=== PATIENT | female | born 1955 | race Asian ===

== ENCOUNTER 2017-10-22 07:30 | Inpatient (IN) | payer OTHER ==
[~2017-10-22] VITALS: Ht 160 cm; Wt 54.0 kg
[2017-11-22] VITALS (15 sets, daily range): BP systolic 118–147; BP diastolic 77–90
[2017-11-22] MEDS ORDERED: Pantoprazole Inj IVP ONE (06:00)
[2017-11-22] MEDS ORDERED: Vancomycin 1gm/D5W 275ml IVPB ONE ×2 (06:00)
[2017-11-22] MEDS ORDERED: Vancomycin 1gm inj IVPB ONE (06:29)
[2017-11-22] MEDS ORDERED: Pantoprazole Inj ONE (06:48)
[2017-11-22] MEDS ORDERED: LR 1000ml 1,000 ML IVLG SCH (06:57)
[2017-11-22] MEDS ORDERED: Atropine Inj 1mg/10ml Syr IV PRN (07:00)
[2017-11-22] MEDS ORDERED: LORazepam Inj 2mg/ml 1ml IV PRN (07:00)
[2017-11-22] MEDS ORDERED: Midazolam 2mg/2ml Inj IVP PRN (07:00)
[2017-11-22] MEDS ORDERED: Ketorolac 30mg Inj IV PRN ×2 (07:00)
[2017-11-22] MEDS ORDERED: DiphenhydrAMINE 50mg/ml Inj IVP PRN (07:00)
[2017-11-22] MEDS ORDERED: oxyCODONE HCL/Acetaminophen 5/325mg ORAL PRN (07:00)
[2017-11-22] MEDS ORDERED: Labetalol 5mg/ml 20ml vial IV PRN (07:00)
[2017-11-22] MEDS ORDERED: Propofol 1,000mg/ 100ml btl IV ONE (07:00)
[2017-11-22] MEDS ORDERED: Norco 5mg/325mg tab ORAL PRN (07:00)
[2017-11-22] MEDS ORDERED: Acetaminophen (Non formulary) 100 ML IV ONE ×3 (07:00→21:00)
[2017-11-22] MEDS ORDERED: fentaNYL 100 mcg/2 mL IV PRN (07:00)
[2017-11-22] MEDS ORDERED: EPINEPHrine 1mg/1ml Amp ONE (07:00)
[2017-11-22] MEDS ORDERED: Thrombin 5000 units TOPIC ONE ×3 (07:00→12:36)
[2017-11-22] MEDS ORDERED: HYDROcodone/Acetamin 7.5/325 tab ORAL PRN ×2 (07:00→18:45)
[2017-11-22] MEDS ORDERED: Hydromorphone 0.5mg/0.5ml inj IVP PRN (07:00)
[2017-11-22] MEDS ORDERED: Metoclopramide 10mg/2ml Inj IVP PRN (07:00)
[2017-11-22] MEDS ORDERED: Bacitracin 50000 Units Vial ONE ×3 (07:01→16:11)
[2017-11-22] MEDS ORDERED: Gelfoam Absorbable 1gm powder pkt TOPIC ONE (07:02)
[2017-11-22] MEDS ORDERED: Sodium Chloride 10ml vial INJ ONE (07:02)
[2017-11-22] MEDS ORDERED: Lidocaine 1% MPF 10mg/ml 5ml ONE (07:02)
[2017-11-22] MEDS ORDERED: Dexamethasone 4mg/ml vial ONE ×3 (07:02→12:20)
[2017-11-22] MEDS ORDERED: Thrombin 5000 units spray kit TOPIC ONE (07:02)
[2017-11-22] MEDS ORDERED: VITAMIN C1000 M2 PO (07:03)
[2017-11-22] MEDS ORDERED: HAIR SKIN NAIL1 EACH PO (07:03)
[2017-11-22] MEDS ORDERED: VITAMIN D32000 UNI3 PO (07:03)
[2017-11-22] MEDS ORDERED: FORTEO2.4 ML SUBQ (07:03)
[2017-11-22] MEDS ORDERED: LUTEIN 15 MG S1 EACH PO (07:03)
[2017-11-22] MEDS ORDERED: CALCIUM500 M2 PO (07:03)
[2017-11-22] MEDS ORDERED: Heparin 1000 units/ml 1ml Vial ONE (07:09)
--- NOTE | 2017-11-22 07:45 | Anethesia Preoperative Eval ---
Anesthesia Pre-op PMH/ROS General Date of Evaluation: Nov 22, 2017 Time of Evaluation: 08:01 Anesthesiologist: Micheal ASA Score: ASA 2 Mallampati Score Class I : Soft palate, uvula, fauces, pillars visible Class II: Soft palate, uvula, fauces visible Class III: Soft palate, base of uvula visible Class IV: Only hard plate visible Mallampati Classification: Class II Surgeon: Gabino Diagnosis: Neck Pain Surgical Procedure: ACDF C4-5, C5-6 Anesthesia History: none Family History: no anesthesia problems Allergies: Coded Allergies: No Known Allergies (Unverified , 11/21/17) Medications: see eMAR Past Medical History Neurologic/Psychiatric: Reports: depression/anxiety PSxH Narrative: Appendectomy Anesthesia Pre-op Phys. Exam Physician Exam Last Vital Signs Date Time Temp Pulse Resp B/P (MAP) Pulse Ox O2 Delivery O2 Flow Rate FiO2 11/22/17 06:56 97.7 56 18 118/81 100 Room Air 97.7 Constitutional: NAD Neurologic: CN 2-12 intact Cardiovascular: RRR Respiratory: CTA Gastrointestinal: S/NT/ND Airway Exam Mallampati Score: Class II MO: full ROM: limited Teeth: intact Anesthesia Pre-op A/P Risk Assessment & Plan Assessment: ASA 2 Plan: GA, BIS, GlideScope Status Change Before Surgery: No Pre-Antibiotics Dru Gram Vancomycin IV Given Within 1 Hr of Incision: Yes Time Given: 08:06 Tuan Burton MD Nov 22, 2017 07:45
--- NOTE | 2017-11-22 07:52 | Brief Operative Note ---
Immediate Post Operative Note Operative Note Chief Complaint: Intractable neck pain, arm aeakness and poor balamnce MIKI SALOOMN Nov 22, 2017 07:52
--- NOTE | 2017-11-22 07:55 | Pre-Procedure Note/Attestation ---
Pre-Procedure Note/Attestation Complete Prior to Procedure Planned Procedure: bilateral Procedure Narrative: Two stage procedure: 1. Anterior cervical discectomy with partial corpectomies C4-5 and C5-6, interbody cage, allograft, autograft and iliac crest bone marrow aspirate and fixation. 2. Posterior cervical decompression and lateral mass fixation with screws and rods and posterolateral fusion with allograft, autograft and iliac crest bone marrow aspirate. Attestation I attest that I discussed the nature of the procedure; its benefits; risks and complications; and alternatives (and the risks and benefits of such alternatives ), prior to the procedure, with the patient (or the patient's legal c s s representative). I attest that, if there was a reasonable possibility of needing a blood transfusion, the patient (or the patient's legal c s s representative) was given the [place] [facility] [employer] [facility] standardized written summary, pursuant to the [place] Blood Safety Act ([place] Health and Safety Code # 1645, as amended). I attest that I re-evaluated the patient just prior to the surgery and that there has been no change in the patient's H&P, except as documented below: MIKI SALOMON Nov 22, 2017 07:55
[2017-11-22] MEDS ORDERED: NS Irrig 1000ml ONE (08:00)
[2017-11-22] MEDS ORDERED: Sterile Water Irrig 1000ml IRRIG ONE (08:00)
[2017-11-22] MEDS ORDERED: Zemuron 50mg/5ml Inj IV ONE (08:00)
[2017-11-22] MEDS ORDERED: LR 1000ml ONE (08:00)
[2017-11-22] MEDS ORDERED: Lidocaine 1% Plain 30 ml INJ ONE ×3 (08:12→14:05)
--- NOTE | 2017-11-22 09:17 | Immediate Post-Op Evaluation ---
Immediate Post-Op Evalulation Immediate Post-Op Evalulation Procedure: ACDF C4-5, C5-6, PSF C4-7 Date of Evaluation: Nov 22, 2017 Time of Evaluation: 17:50 IV Fluids: 1200 LR Blood Products: 500 ALB Estimated Blood Loss: 200 Urinary Output: 700 Blood Pressure Systolic: 134 Blood Pressure Diastolic: 76 Pulse Rate: 66 Respiratory Rate: 16 O2 Sat by Pulse Oximetry: 100 Temperature (Fahrenheit): 97.6 Pain Score (1-10): 3 Nausea: No Vomiting: No Complications 0 Patient Status: awake, reacts, patent, extubated, none Hydration Status: adequate Dru Gram Vancomycin IV Given Within 1 Hr of Incision: Yes Time Given: 08:06 Tuan Burton MD Nov 22, 2017 09:17
[2017-11-22] MEDS: Thrombin 5000 units spray kit TOPIC ONE ×2 (09:20→13:45)
[2017-11-22] MEDS: Bupivacaine 0.5% Inj 30 ml vial INJ ONE ×2 (09:20→13:45)
[2017-11-22] MEDS ORDERED: fentaNYL 100 mcg/2 mL IV ONE ×2 (10:19→16:30)
[2017-11-22] MEDS: Bacitracin 50000 Units Vial ONE ×2 (11:25→14:50)
[2017-11-22] MEDS ORDERED: Bacitracin Oint 15gm Tube TOPIC ONE (12:36)
[2017-11-22] MEDS ORDERED: Flumazenil 0.1mg/ml 5ml Inj IV ONE (12:48)
[2017-11-22] MEDS ORDERED: Bupivacaine 0.5% Inj 30 ml vial INJ ONE (12:50)
[2017-11-22] MEDS ORDERED: Propofol 200mg/20ml IV ONE (14:06)
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
--- NOTE | 2017-11-22 18:31 | General Progress Note ---
Progress Note Progress Note Neurosuregry Recover room eval S/ comfortable. O/ VS.: Last 24 Hour Vital Signs Date Time Temp Pulse Resp B/P (MAP) Pulse Ox O2 Delivery O2 Flow Rate FiO2 11/22/17 18:10 73 19 140/81 100 Nasal Cannula 3.0 11/22/17 18:00 71 22 142/84 100 Simple Mask 6.0 11/22/17 17:50 69 20 128/80 100 Simple Mask 6.0 11/22/17 17:45 64 13 129/77 100 Simple Mask 6.0 11/22/17 17:41 207.7 66 16 100 11/22/17 17:39 97.6 66 18 134/86 100 Simple Mask 6.0 97.6 11/22/17 06:56 97.7 56 18 118/81 100 Room Air 97.7 Alert responsive Moves all extremities to command in C-collar [place] dressings are C/D/I Hemovac with minimal output. MIIK SALOMON Nov 22, 2017 18:31
[2017-11-22] MEDS ORDERED: Milk of Magnesia 30ml Ud ORAL PRN (18:45)
[2017-11-22] MEDS: Vancomycin 1 GM in D5W 275 ML IVPB SCH (21:09)
[2017-11-22] MEDS ORDERED: NS w/KCl 20mEq 1,000 ML IV SCH (22:00)
[2017-11-22] MEDS: HYDROcodone/Acetamin 7.5/325 tab ORAL PRN (23:22)
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
[2017-11-23] VITALS: BP 138/78
[2017-11-23] MEDS: traMADol 50mg tab ORAL PRN (01:48)
[2017-11-23] MEDS: HYDROcodone/Acetamin 7.5/325 tab ORAL PRN ×4 (03:17→20:40)
[2017-11-23 04:00] VITALS: BP 125/63
[2017-11-23 08:00] VITALS: BP 112/72
[2017-11-23] MEDS: Docusate 100mg cap ORAL SCH ×2 (08:47→18:40)
[2017-11-23] MEDS: Docusate Sod/Senna tab ORAL SCH ×2 (08:47→18:40)
[2017-11-23] MEDS: Vancomycin 1 GM in D5W 275 ML IVPB SCH (08:49)
[2017-11-23] MEDS ORDERED: TransDerm Scop 1mg/72HR Patch TDERMAL ONE (09:00)
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
[2017-11-23 10:07] LABS: BASOPHILS % (AUTO) 0.2 % (0.0-2.0); HEMATOCRIT 32.3 % (37.0-47.0); LYMPHOCYTES % (AUTO) 13.7 % (20.0-45.0); MEAN CORPUSCULAR VOLUME 97 FL (80-99); MONOCYTES % (AUTO) 5.4 % (1.0-10.0); NEUTROPHILS % (AUTO) 80.7 % (45.0-75.0); PLATELET COUNT 180 K/UL (150-450); RED BLOOD COUNT 3.35 M/UL (4.20-5.40); RED CELL DISTRIBUTION WIDTH 10.2 % (11.6-14.8); WHITE BLOOD COUNT 11.3 K/UL (4.8-10.8)
[2017-11-23 10:17] LABS: ANION GAP 8 mmol/L (5-15); BLOOD UREA NITROGEN 12 mg/dL (7-18); CALCIUM 8.4 MG/DL (8.5-10.1); CARBON DIOXIDE 29 MMOL/L (21-32); CHLORIDE 104 MMOL/L (98-107); CREATININE 0.5 MG/DL (0.55-1.30); POTASSIUM 3.7 MMOL/L (3.5-5.1); SODIUM 141 MMOL/L (136-145)
[2017-11-23 12:00] VITALS: BP 115/68
[2017-11-23] MEDS ORDERED: ONDANSETRON IV SCH (12:30)
[2017-11-23] MEDS ORDERED: D5W IV SCH (12:30)
--- NOTE | 2017-11-23 12:59 | Diagnostic Imaging Report ---
Indication: Intraoperative imaging. Neck pain Findings: 13 fluoroscopic views of the cervical spine were obtained. Exam shows some multilevel fusion of the cervical spine with posterior fusion apparatus C4-C7 an anterior compression plate C4-C6. The C4-5 and C5-6 discs have been replaced. IMPRESSION: Intraoperative imaging
[2017-11-23 16:00] VITALS: BP 124/66
--- NOTE | 2017-11-23 16:07 | General Progress Note ---
Progress Note Progress Note Neurosurgery s/ Pain under control. Nausea controlled with IV Zofran. Reports increase sensation in the arms and legs, bilaterally. Noticed improved strength in the arms. She ambulated with PT today. O/ vs.: Last 24 Hour Vital Signs Date Time Temp Pulse Resp B/P (MAP) Pulse Ox O2 Delivery O2 Flow Rate FiO2 11/23/17 12:00 97.9 62 18 115/68 99 Nasal Cannula 3.0 97.9 11/23/17 08:00 98.0 60 21 112/72 99 Nasal Cannula 3.0 98.0 11/23/17 04:00 99.0 62 18 125/63 100 Nasal Cannula 3.0 99.0 11/23/17 00:00 98.7 62 18 138/78 100 Nasal Cannula 3.0 98.7 11/22/17 21:23 Nasal Cannula 3.0 11/22/17 21:23 100 Nasal Cannula 3.0 11/22/17 20:35 97.9 77 18 143/85 100 Nasal Cannula 3.0 97.9 11/22/17 20:20 98.2 77 19 134/79 100 Nasal Cannula 3.0 98.2 11/22/17 20:05 98.2 70 19 133/78 100 Nasal Cannula 3.0 98.2 11/22/17 19:50 98.2 74 18 130/78 99 Nasal Cannula 3.0 98.2 11/22/17 19:35 98.1 69 17 125/79 97 Nasal Cannula 3.0 98.1 11/22/17 19:00 98.0 75 20 142/79 100 Nasal Cannula 3.0 98.0 11/22/17 18:45 72 18 142/88 100 Nasal Cannula 3.0 11/22/17 18:30 77 20 145/83 100 Nasal Cannula 3.0 11/22/17 18:20 75 22 147/90 100 Nasal Cannula 3.0 11/22/17 18:10 73 19 140/81 100 Nasal Cannula 3.0 11/22/17 18:00 71 22 142/84 100 Simple Mask 6.0 11/22/17 17:50 69 20 128/80 100 Simple Mask 6.0 11/22/17 17:45 64 13 129/77 100 Simple Mask 6.0 11/22/17 17:41 207.7 66 16 100 11/22/17 17:39 97.6 66 18 134/86 100 Simple Mask 6.0 97.6 Alert and oriented and interactive. Dressings are C/D/I. HV drain 81 cc overnight and 20 cc today. Drainage is clear serosang. HV was removed at bedside without complications. Uppers are 5/5 in deltoides, biceps, and health safety and environment manager bilaterally Lowers 5/5 in proximal and distal muscle groups. sensation present in the upper and lower. C-collar in place. New dressing applied after HV removal Labs: Laboratory Tests Test 11/23/17 07:25 White Blood Count 11.3 K/UL (4.8-10.8) H Red Blood Count 3.35 M/UL (4.20-5.40) L Hemoglobin 11.0 G/DL (12.0-16.0) L Hematocrit 32.3 % (37.0-47.0) L Mean Corpuscular Volume 97 FL (80-99) Mean Corpuscular Hemoglobin 32.8 PG (27.0-31.0) H Mean Corpuscular Hemoglobin Concent 34.0 G/DL (32.0-36.0) Red Cell Distribution Width 10.2 % (11.6-14.8) L Platelet Count 180 K/UL (150-450) Mean Platelet Volume 7.0 FL (6.5-10.1) Neutrophils (%) (Auto) 80.7 % (45.0-75.0) H Lymphocytes (%) (Auto) 13.7 % (20.0-45.0) L Monocytes (%) (Auto) 5.4 % (1.0-10.0) Eosinophils (%) (Auto) 0.0 % (0.0-3.0) Basophils (%) (Auto) 0.2 % (0.0-2.0) Sodium Level 141 MMOL/L (136-145) Potassium Level 3.7 MMOL/L (3.5-5.1) Chloride Level 104 MMOL/L (98-107) Carbon Dioxide Level 29 MMOL/L (21-32) Anion Gap 8 mmol/L (5-15) Blood Urea Nitrogen 12 mg/dL (7-18) Creatinine 0.5 MG/DL (0.55-1.30) L Estimat Glomerular Filtration Rate > 60 mL/min (>60) Glucose Level 132 MG/DL (74-106) H Calcium Level 8.4 MG/DL (8.5-10.1) L Magnesium Level 2.1 MG/DL (1.8-2.4) doing well pain control nausea control ambulate D/c Ace disposition. MIKI SALOMON Nov 23, 2017 16:07
--- NOTE | 2017-11-23 19:20 | 48 Hour Post Anesthesia Eval ---
Post Anesthesia Evaluation Procedure: ACDF C4-5, C5-6, PSF C4-7 Date of Evaluation: Nov 23, 2017 Time of Evaluation: 16:00 Blood Pressure Systolic: 124 0: 66 Pulse Rate: 58 Respiratory Rate: 20 Temperature (Fahrenheit): 97.1 O2 Sat by Pulse Oximetry: 99 Airway: patent Nausea: No Vomiting: No Pain Intensity: 0 Hydration Status: adequate Mental Status/LOC: patient returned to baseline Post-Anesthesia Complications: none Follow-up care needed: N/A Danyelle Villanueva M.D. Nov 23, 2017 19:20
[2017-11-23 20:00] VITALS: BP 112/63
[2017-11-24] VITALS: BP 112/66
[2017-11-24] MEDS: HYDROcodone/Acetamin 7.5/325 tab ORAL PRN ×6 (00:24→18:15)
[2017-11-24 04:00] VITALS: BP 118/68
[2017-11-24 08:00] VITALS: BP 130/70
[2017-11-24] MEDS: Docusate Sod/Senna tab ORAL SCH ×2 (08:23→18:14)
[2017-11-24] MEDS: Docusate 100mg cap ORAL SCH ×2 (08:23→18:14)
[2017-11-24 12:00] VITALS: BP 103/65
[2017-11-24] MEDS ORDERED: Tubing IV Secondary IV ONE (13:29)
--- NOTE | 2017-11-24 13:29 | General Progress Note ---
Assessment/Plan Status Narrative S/P VERY COMPLEX SPINE FUSION POST OPERATIVE HYPEREMESIS HAS A LOT OF NAUSEA Assessment/Plan PAIN CONTROL PT OT DVT PROPHYALXIS WITH SCD AND JUAN JOSE HOSE STOCKING PAIN CONTROL DISCUSSED WITH PATIENT A TLENGHT POST CERVICAL FGUSION PRECASUTION DISCUSSED WITH dR SALOMON Subjective Date patient seen: Nov 24, 2017 Time patient seen: 13:25 HEENT: Reports: no symptoms Allergies: Coded Allergies: No Known Allergies (Unverified , 11/21/17) Subjective has a lotr o fpain no fevneochills no shon stpaion has neck pain Objective Last 24 Hour Vital Signs Date Time Temp Pulse Resp B/P (MAP) Pulse Ox O2 Delivery O2 Flow Rate FiO2 11/24/17 12:50 97.4 11/24/17 12:00 97.4 68 18 103/65 99 Nasal Cannula 3.0 97.4 11/24/17 11:51 97.1 11/24/17 08:24 97.1 11/24/17 08:00 96.9 63 18 130/70 100 Nasal Cannula 3.0 96.9 11/24/17 04:00 98.0 58 20 118/68 97 Nasal Cannula 3.0 98.0 11/24/17 03:40 97.1 11/24/17 00:24 97.1 11/24/17 00:00 98.1 57 20 112/66 99 Nasal Cannula 3.0 98.1 11/23/17 20:40 97.1 11/23/17 20:00 98.7 55 20 112/63 98 Nasal Cannula 3.0 98.7 11/23/17 19:20 206.8 58 20 99 11/23/17 16:00 97.1 58 20 124/66 99 Nasal Cannula 3.0 97.1 Intake and Output 11/23/17 11/24/17 19:00 07:00 Intake Total 480 ml 1080 ml Output Total 850 ml Balance 480 ml 230 ml Intake Oral 480 ml 1080 ml Output Urine Total 850 ml # Voids 2 4 Height (Feet): 5 Height (Inches): 3.00 Weight (Pounds): 121 Objective sitting in chair wearing a hard collar dressing of the wound no drainge seen cta s1,s2,rrr soft no edema EDWARD AGUILAR Nov 24, 2017 13:29
[2017-11-24 16:00] VITALS: BP 113/65
[2017-11-24 20:00] VITALS: BP 108/62
[2017-11-25] VITALS: BP 119/68
[2017-11-25] MEDS: HYDROcodone/Acetamin 7.5/325 tab ORAL PRN ×7 (00:23→23:09)
[2017-11-25 04:00] VITALS: BP 105/63
[2017-11-25 08:00] VITALS: BP 112/60
[2017-11-25] MEDS: Docusate 100mg cap ORAL SCH ×2 (09:40→17:00)
[2017-11-25] MEDS: Docusate Sod/Senna tab ORAL SCH ×2 (09:40→17:00)
[2017-11-25 12:00] VITALS: BP 120/67
[2017-11-25 16:00] VITALS: BP 109/61
[2017-11-25 20:43] VITALS: BP 115/70
--- NOTE | 2017-11-25 21:40 | General Progress Note ---
Progress Note Progress Note Neurosurgery POD #3 S/ Ambulated several times. Reports improvement in senation and strength in the uppers and lowers. Nausea much better controlled. No vomiting. and tolerating po's Ace D/c'd O/ Vs: Last 24 Hour Vital Signs Date Time Temp Pulse Resp B/P (MAP) Pulse Ox O2 Delivery O2 Flow Rate FiO2 11/25/17 20:43 98.6 67 16 115/70 97 98.6 11/25/17 17:29 98.3 11/25/17 16:30 98.3 11/25/17 16:00 97.6 62 18 109/61 98 Room Air 97.6 11/25/17 12:00 98.0 54 17 120/67 98 Room Air 98.0 11/25/17 11:24 98.3 11/25/17 08:00 97.8 61 18 112/60 97 Room Air 97.8 11/25/17 04:00 98.3 76 18 105/63 98 98.3 11/25/17 00:00 98.3 61 18 119/68 99 Nasal Cannula 3.0 98.3 On exam Alert and oriented. In good spirit. Upper extremities are 5/5 in deltoids, biceps, triceps and intrinsics bilaterally. Normal sensation in the hands and feet in Cervical hard collar incisions are clean dry and intact. doing well continue with inpatient PT disposition planning Dr. Cheney for inpatient followup Pt will follow-up with me in 2 weeks. total 8 weeks of hard collar soft collar at night after week 2. MIKI SALOMON Nov 25, 2017 21:40
--- NOTE | 2017-11-25 22:20 | General Progress Note ---
Assessment/Plan Assessment/Plan s/p complex spine surgery pt ot dvt prophyalxis paincontrol ambulate and follow Subjective Date patient seen: Nov 25, 2017 Time patient seen: 22:18 Allergies: Coded Allergies: No Known Allergies (Unverified , 11/21/17) Subjective has been walking no fever no chills Objective Last 24 Hour Vital Signs Date Time Temp Pulse Resp B/P (MAP) Pulse Ox O2 Delivery O2 Flow Rate FiO2 11/25/17 20:43 98.6 67 16 115/70 97 98.6 11/25/17 17:29 98.3 11/25/17 16:30 98.3 11/25/17 16:00 97.6 62 18 109/61 98 Room Air 97.6 11/25/17 12:00 98.0 54 17 120/67 98 Room Air 98.0 11/25/17 11:24 98.3 11/25/17 08:00 97.8 61 18 112/60 97 Room Air 97.8 11/25/17 04:00 98.3 76 18 105/63 98 98.3 11/25/17 00:00 98.3 61 18 119/68 99 Nasal Cannula 3.0 98.3 Intake and Output 11/24/17 11/25/17 19:00 07:00 Intake Total 700 ml 720 ml Output Total 800 ml Balance -100 ml 720 ml Intake Oral 500 ml 720 ml Other 200 ml Output Urine Total 800 ml Stool Total 0 ml # Voids 4 3 Height (Feet): 5 Height (Inches): 3.00 Weight (Pounds): 121 General Appearance: no apparent distress Neck: tender midline, other - has hard cervical collar Cardiovascular: normal rate Respiratory/Chest: lungs clear Objective sitting in chair wearing a hard collar dressing of the wound no drainge seen cta s1,s2,rrr soft no edema EDWARD AGUILAR Nov 25, 2017 22:20
[2017-11-26 00:14] VITALS: BP 118/66
[2017-11-26 04:44] VITALS: BP 114/63
[2017-11-26] MEDS: HYDROcodone/Acetamin 7.5/325 tab ORAL PRN ×4 (06:57→21:14)
[2017-11-26 08:00] VITALS: BP 130/59
[2017-11-26] MEDS: traMADol 50mg tab ORAL PRN ×2 (08:27→18:57)
[2017-11-26] MEDS: Docusate Sod/Senna tab ORAL SCH ×2 (08:27→17:18)
[2017-11-26] MEDS: Docusate 100mg cap ORAL SCH ×2 (08:27→17:18)
[2017-11-26 12:00] VITALS: BP 118/69
[2017-11-26 16:00] VITALS: BP 133/79
--- NOTE | 2017-11-26 19:44 | General Progress Note ---
Assessment/Plan Assessment/Plan s/p complex spine surgery pt ot dvt prophyalxis paincontrol ambulate and follow Subjective Date patient seen: Nov 26, 2017 Time patient seen: 19:41 Constitutional: Reports: no symptoms HEENT: Reports: no symptoms Allergies: Coded Allergies: No Known Allergies (Unverified , 11/21/17) Subjective has had anxiety no fever no chills no chest pain very nervous Objective Last 24 Hour Vital Signs Date Time Temp Pulse Resp B/P (MAP) Pulse Ox O2 Delivery O2 Flow Rate FiO2 11/26/17 18:57 98.6 11/26/17 17:29 98.6 11/26/17 16:30 98.6 11/26/17 16:00 97.4 70 18 133/79 99 Room Air 97.4 11/26/17 12:18 98.6 11/26/17 12:00 97.2 64 18 118/69 98 Room Air 97.2 11/26/17 09:26 98.6 11/26/17 08:27 98.6 11/26/17 08:00 98.0 90 17 130/59 94 Room Air 98.0 11/26/17 04:44 98.6 66 16 114/63 98 98.6 11/26/17 00:14 98.4 69 18 118/66 97 98.4 11/25/17 20:43 98.6 67 16 115/70 97 98.6 Intake and Output 11/25/17 11/26/17 19:00 07:00 Intake Total 920 ml 360 ml Output Total 0 ml Balance 920 ml 360 ml Intake Oral 800 ml 360 ml Other 120 ml Stool Total 0 ml # Voids 7 5 Height (Feet): 5 Height (Inches): 3.00 Weight (Pounds): 121 Objective in bed lying down cervical collar intact wound no drainge cta s1,s2,rrr soft no edema impression: s/p cervical fusion pt ot dvt prophyalxi siwth shelby hose stocking and scd resume trintelix for anxiety PTSD EDWARD AGUILAR Nov 26, 2017 19:44
[2017-11-26 20:00] VITALS: BP 145/72
[2017-11-26] MEDS: VORTIOXETINE 10 MG ORAL SCH ×2 (21:00→21:14)
[2017-11-27] VITALS: BP 113/67
[2017-11-27] MEDS: HYDROcodone/Acetamin 7.5/325 tab ORAL PRN ×4 (01:51→15:35)
[2017-11-27 04:00] VITALS: BP 105/66
[2017-11-27 08:00] VITALS: BP 108/68
[2017-11-27] MEDS: Docusate 100mg cap ORAL SCH ×2 (08:33→17:07)
[2017-11-27] MEDS: Docusate Sod/Senna tab ORAL SCH ×2 (08:33→17:07)
[2017-11-27 12:00] VITALS: BP 110/66
--- NOTE | 2017-11-27 13:48 | General Progress Note ---
Assessment/Plan Assessment/Plan doing better pt ot dvt rpophayl;xis anti emetic Subjective Date patient seen: Nov 27, 2017 Time patient seen: 13:47 Allergies: Coded Allergies: No Known Allergies (Unverified , 11/21/17) Subjective stillhas pain nuaseated today had anti nausea medicaiotn Objective Last 24 Hour Vital Signs Date Time Temp Pulse Resp B/P (MAP) Pulse Ox O2 Delivery O2 Flow Rate FiO2 11/27/17 12:30 97.9 11/27/17 12:00 97.2 59 16 110/66 97 Room Air 97.2 11/27/17 11:31 97.9 11/27/17 08:00 98.0 59 16 108/68 98 Room Air 98.0 11/27/17 07:31 97.9 11/27/17 04:00 97.9 57 17 105/66 96 Room Air 97.9 11/27/17 00:00 97.5 65 18 113/67 96 Room Air 97.5 11/26/17 20:00 97.5 70 18 145/72 99 Room Air 97.5 11/26/17 18:57 98.6 11/26/17 16:30 98.6 11/26/17 16:00 97.4 70 18 133/79 99 Room Air 97.4 Intake and Output 11/26/17 11/27/17 19:00 07:00 Intake Total 320 ml Balance 320 ml Intake Oral 320 ml # Voids 1 3 Height (Feet): 5 Height (Inches): 3.00 Weight (Pounds): 121 General Appearance: WD/WN Cardiovascular: normal rate, regular rhythm, no JVD Respiratory/Chest: lungs clear Objective in bed lying down cervical collar intact wound no drainge cta s1,s2,rrr soft no edema impression: s/p cervical fusion pt ot dvt prophyalxi siwth shelby hose stocking and scd resume trintelix for anxiety PTSD Roberto Cheney MD Nov 27, 2017 13:48
[2017-11-27 16:00] VITALS: BP 115/69
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
[2017-11-27 20:08] VITALS: BP 118/68
[2017-11-27] MEDS: VORTIOXETINE 10 MG ORAL SCH (21:04)
[2017-11-27] MEDS: traMADol 50mg tab ORAL PRN (21:05)
[2017-11-28] VITALS (7 sets, daily range): BP systolic 112–128; BP diastolic 66–80
[2017-11-28] MEDS: HYDROcodone/Acetamin 7.5/325 tab ORAL PRN ×2 (01:16→17:36)
[2017-11-28] MEDS: traMADol 50mg tab ORAL PRN (07:37)
[2017-11-28] MEDS: Docusate Sod/Senna tab ORAL SCH ×2 (09:00→17:35)
[2017-11-28] MEDS: Docusate 100mg cap ORAL SCH ×2 (09:00→17:35)
[2017-11-28 10:26] LABS: BASOPHILS % (AUTO) 0.4 % (0.0-2.0); EOSINOPHILS % (AUTO) 0.4 % (0.0-3.0); HEMATOCRIT 36.4 % (37.0-47.0); HEMOGLOBIN 12.1 G/DL (12.0-16.0); LYMPHOCYTES % (AUTO) 13.6 % (20.0-45.0); MEAN CORPUSCULAR VOLUME 96 FL (80-99); MONOCYTES % (AUTO) 4.5 % (1.0-10.0); NEUTROPHILS % (AUTO) 81.1 % (45.0-75.0); PLATELET COUNT 282 K/UL (150-450); RED BLOOD COUNT 3.78 M/UL (4.20-5.40); RED CELL DISTRIBUTION WIDTH 10.1 % (11.6-14.8); WHITE BLOOD COUNT 8.2 K/UL (4.8-10.8)
[2017-11-28 10:43] LABS: ALANINE AMINOTRANSFERASE 51 U/L (12-78); ALBUMIN 3.1 G/DL (3.4-5.0); ALBUMIN/GLOBULIN RATIO 0.7 (1.0-2.7); ALKALINE PHOSPHATASE 85 U/L (46-116); ANION GAP 5 mmol/L (5-15); ASPARTATE AMINO TRANSFERASE 25 U/L (15-37); BILIRUBIN,TOTAL 0.5 MG/DL (0.2-1.0); BLOOD UREA NITROGEN 13 mg/dL (7-18); CALCIUM 9.4 MG/DL (8.5-10.1); CARBON DIOXIDE 31 MMOL/L (21-32); CHLORIDE 100 MMOL/L (98-107); CREATININE 0.6 MG/DL (0.55-1.30); POTASSIUM 4.1 MMOL/L (3.5-5.1); SODIUM 136 MMOL/L (136-145)
--- NOTE | 2017-11-28 17:56 | General Progress Note ---
Progress Note Progress Note Neurosurgery follow-up S/ Feeling better, less nausea. No vomiting. Ambulated with PT. Oral intake is supplemented by Protein shakes. O/ Vs: Last 24 Hour Vital Signs Date Time Temp Pulse Resp B/P (MAP) Pulse Ox O2 Delivery O2 Flow Rate FiO2 11/28/17 17:36 97.7 11/28/17 16:00 97.7 61 18 114/72 98 97.7 11/28/17 11:37 98.2 61 18 112/71 97 98.2 11/28/17 11:29 97.3 58 18 128/80 98 Room Air 97.3 11/28/17 08:36 97.3 11/28/17 08:00 97.3 58 18 128/80 98 Room Air 97.3 11/28/17 07:37 97.9 11/28/17 04:19 97.9 68 18 113/66 98 97.9 11/28/17 01:16 97.5 11/28/17 00:03 97.5 61 18 120/71 97 97.5 11/27/17 21:05 97.7 11/27/17 20:08 97.7 64 17 118/68 98 97.7 Alert and oriented Moves all extremities well dressings all dry and intact Hard collar in place Labs: Laboratory Tests Test 11/28/17 10:15 White Blood Count 8.2 K/UL (4.8-10.8) Red Blood Count 3.78 M/UL (4.20-5.40) L Hemoglobin 12.1 G/DL (12.0-16.0) Hematocrit 36.4 % (37.0-47.0) L Mean Corpuscular Volume 96 FL (80-99) Mean Corpuscular Hemoglobin 32.1 PG (27.0-31.0) H Mean Corpuscular Hemoglobin Concent 33.4 G/DL (32.0-36.0) Red Cell Distribution Width 10.1 % (11.6-14.8) L Platelet Count 282 K/UL (150-450) Mean Platelet Volume 6.1 FL (6.5-10.1) L Neutrophils (%) (Auto) 81.1 % (45.0-75.0) H Lymphocytes (%) (Auto) 13.6 % (20.0-45.0) L Monocytes (%) (Auto) 4.5 % (1.0-10.0) Eosinophils (%) (Auto) 0.4 % (0.0-3.0) Basophils (%) (Auto) 0.4 % (0.0-2.0) Sodium Level 136 MMOL/L (136-145) Potassium Level 4.1 MMOL/L (3.5-5.1) Chloride Level 100 MMOL/L (98-107) Carbon Dioxide Level 31 MMOL/L (21-32) Anion Gap 5 mmol/L (5-15) Blood Urea Nitrogen 13 mg/dL (7-18) Creatinine 0.6 MG/DL (0.55-1.30) Estimat Glomerular Filtration Rate > 60 mL/min (>60) Glucose Level 148 MG/DL (74-106) H Calcium Level 9.4 MG/DL (8.5-10.1) Total Bilirubin 0.5 MG/DL (0.2-1.0) Aspartate Amino Transf (AST/SGOT) 25 U/L (15-37) Alanine Aminotransferase (ALT/SGPT) 51 U/L (12-78) Alkaline Phosphatase 85 U/L (46-116) Total Protein 7.5 G/DL (6.4-8.2) Albumin 3.1 G/DL (3.4-5.0) L Globulin 4.4 g/dL Albumin/Globulin Ratio 0.7 (1.0-2.7) L Doing better Ambulate Bowel care D/c MIKI Corrales Nov 28, 2017 17:56
[2017-11-28] MEDS ORDERED: Bisacodyl EC 5mg tab ORAL PRN (18:00)
--- NOTE | 2017-11-28 20:29 | General Progress Note ---
Assessment/Plan Assessment/Plan s/p complex spine fusion postop constipation post op pain PTSD plan colace 250 bid dulcolax suppository adn mom prn adn follow Subjective Date patient seen: Nov 28, 2017 Time patient seen: 20:27 Gastrointestinal/Abdominal: Reports: other - has been constipatede and nauseated Allergies: Coded Allergies: No Known Allergies (Unverified , 11/21/17) Subjective has pain Objective Last 24 Hour Vital Signs Date Time Temp Pulse Resp B/P (MAP) Pulse Ox O2 Delivery O2 Flow Rate FiO2 11/28/17 17:36 97.7 11/28/17 16:00 97.7 61 18 114/72 98 97.7 11/28/17 11:37 98.2 61 18 112/71 97 98.2 11/28/17 11:29 97.3 58 18 128/80 98 Room Air 97.3 11/28/17 08:36 97.3 11/28/17 08:00 97.3 58 18 128/80 98 Room Air 97.3 11/28/17 07:37 97.9 11/28/17 04:19 97.9 68 18 113/66 98 97.9 11/28/17 01:16 97.5 11/28/17 00:03 97.5 61 18 120/71 97 97.5 11/27/17 21:05 97.7 Intake and Output 11/27/17 11/28/17 19:00 07:00 Intake Total 800 ml 1080 ml Output Total 1 ml Balance 800 ml 1079 ml Intake Oral 800 ml 1080 ml Emesis 1 ml # Voids 3 7 Laboratory Tests 11/28/17 10:15: White Blood Count 8.2, Red Blood Count 3.78L, Hemoglobin 12.1, Hematocrit 36.4L , Mean Corpuscular Volume 96, Mean Corpuscular Hemoglobin 32.1H, Mean Corpuscular Hemoglobin Concent 33.4, Red Cell Distribution Width 10.1L, Platelet Count 282, Mean Platelet Volume 6.1L, Neutrophils (%) (Auto) 81.1H, Lymphocytes (%) (Auto) 13.6L, Monocytes (%) (Auto) 4.5, Eosinophils (%) (Auto) 0.4, Basophils (%) (Auto) 0.4, Sodium Level 136, Potassium Level 4.1, Chloride Level 100, Carbon Dioxide Level 31, Anion Gap 5, Blood Urea Nitrogen 13, Creatinine 0.6, Estimat Glomerular Filtration Rate > 60, Glucose Level 148H, Calcium Level 9.4, Total Bilirubin 0.5, Aspartate Amino Transf (AST/SGOT) 25, Alanine Aminotransferase (ALT/SGPT) 51, Alkaline Phosphatase 85, Total Protein 7.5, Albumin 3.1L, Globulin 4.4, Albumin/Globulin Ratio 0.7L Height (Feet): 5 Height (Inches): 3.00 Weight (Pounds): 119 Objective weatring cervical collar in the chair cta s1,s2,rrr osft distended Roberto Cheney MD Nov 28, 2017 20:29
[2017-11-28] MEDS ORDERED: Bisacodyl EC 5mg tab ORAL ONE (21:00)
[2017-11-28] MEDS: Docusate 250mg cap ORAL SCH ×2 (21:00→21:19)
[2017-11-28] MEDS: VORTIOXETINE 10 MG ORAL SCH ×2 (21:20→21:27)
[2017-11-28] MEDS ORDERED: Fleet's Mineral Oil Enema RECTAL SCH (23:45)
[2017-11-29] VITALS: BP 137/73
[2017-11-29 05:57] VITALS: BP 124/71
[2017-11-29 08:00] VITALS: BP 127/70
[2017-11-29] MEDS: Docusate Sod/Senna tab ORAL SCH ×2 (08:51→18:06)
[2017-11-29] MEDS: Docusate 250mg cap ORAL SCH (08:51)
[2017-11-29 12:00] VITALS: BP 132/79
[2017-11-29] MEDS: traMADol 50mg tab ORAL PRN (12:24)
--- NOTE | 2017-11-29 14:31 | General Progress Note ---
Progress Note Progress Note S/ Doing better. had BM. Ambulated with PT Pain controlled. No arm pain. O/ Vs. Last 24 Hour Vital Signs Date Time Temp Pulse Resp B/P (MAP) Pulse Ox O2 Delivery O2 Flow Rate FiO2 11/29/17 12:00 97.9 71 17 132/79 98 Room Air 97.9 11/29/17 09:51 98.1 11/29/17 08:00 98.1 60 17 127/70 100 Room Air 98.1 11/29/17 05:57 98.7 71 18 124/71 98 Room Air 98.7 11/29/17 00:00 97.5 59 17 137/73 100 Room Air 97.5 11/28/17 20:00 97.8 62 18 115/72 98 Room Air 97.8 11/28/17 17:36 97.7 11/28/17 16:00 97.7 61 18 114/72 98 97.7 Alert and oriented x 4 Moves all extremities well normal sensation dressing are intact in C-collar doing better continue PT disposition MIKI SALOMON Nov 29, 2017 14:31
[2017-11-29 16:00] VITALS: BP 125/71
[2017-11-29 20:00] VITALS: BP 121/65
[2017-11-30] VITALS (9 sets, daily range): BP systolic 106–128; BP diastolic 65–93
[2017-11-30] MEDS: Docusate Sod/Senna tab ORAL SCH ×2 (09:24→18:00)
[2017-11-30] MEDS: Docusate 250mg cap ORAL SCH (09:24)
--- NOTE | 2017-11-30 19:47 | General Progress Note ---
Progress Note Progress Note Neurosurgery S/ Ambulated independently today. BM x 2. "I was able to dress myself." O/ vs: Last 24 Hour Vital Signs Date Time Temp Pulse Resp B/P (MAP) Pulse Ox O2 Delivery O2 Flow Rate FiO2 11/30/17 16:00 97.6 73 18 109/77 96 Room Air 97.6 11/30/17 12:00 97.7 72 20 120/81 97 Room Air 97.7 11/30/17 08:00 98.8 71 18 128/93 97 Room Air 98.8 11/30/17 04:00 98.0 74 18 118/68 98 Room Air 98.0 11/30/17 02:35 98.1 11/30/17 01:36 98.1 11/30/17 00:00 98.1 70 18 106/65 98 Room Air 98.1 11/29/17 20:00 98.5 66 18 121/65 98 Room Air 98.5 Alert oriented smiling Moves all extremities well dressings are dry and intact s/p complex cervical operation doing well d/c planning with home PT and nursing care. MIKI SALOMON Nov 30, 2017 19:47
[2017-11-30] MEDS: VORTIOXETINE 10 MG ORAL SCH ×2 (21:00→22:09)
[2017-12-01] VITALS (7 sets, daily range): BP systolic 120–145; BP diastolic 73–79
[2017-12-01] MEDS: Docusate 250mg cap ORAL SCH (08:24)
[2017-12-01] MEDS: Docusate Sod/Senna tab ORAL SCH ×2 (08:24→17:38)
--- NOTE | 2017-12-01 19:15 | General Progress Note ---
Progress Note Progress Note Neurosurgery S/ Ambulated several times. Tolearting po's. High protein diet. Pain under control o/ Vs: Last 24 Hour Vital Signs Date Time Temp Pulse Resp B/P (MAP) Pulse Ox O2 Delivery O2 Flow Rate FiO2 12/01/17 16:14 98.2 70 19 123/73 98 Room Air 98.2 70 12/01/17 12:00 97.8 70 18 145/78 99 Room Air 97.8 12/01/17 08:42 98.0 81 18 120/79 98 Room Air 98.0 12/01/17 04:24 97.7 12/01/17 03:52 97.7 71 20 134/74 97 Room Air 97.7 12/01/17 03:25 98.0 12/01/17 00:00 98.0 77 20 120/77 97 Room Air 98.0 11/30/17 22:16 97.6 11/30/17 20:01 97.2 73 18 110/74 97 Room Air 97.2 Gait is significantly improved from pre-op.Patient was observed ambulating in [facility]. Motor exam symmetrical in the uppers and lowers dressings clean dry and intact doing well D/c planning with home health nurse/PT. Hold discharge till Sunday. MIKI SALOMON Dec 01, 2017 19:15
[2017-12-01] MEDS: VORTIOXETINE 10 MG ORAL SCH (21:00)
[2017-12-02] VITALS: BP 115/68
[2017-12-02 04:00] VITALS: BP 120/70
[2017-12-02 08:00] VITALS: BP 120/73
[2017-12-02] MEDS: Docusate Sod/Senna tab ORAL SCH ×2 (08:19→17:33)
[2017-12-02] MEDS: Docusate 250mg cap ORAL SCH (08:19)
[2017-12-02 12:00] VITALS: BP_SYST 124; BP_SYST 145; BP_DIAS 83; BP_DIAS 86
[2017-12-02 16:00] VITALS: BP 110/68
[2017-12-02 20:00] VITALS: BP 130/79
[2017-12-02] MEDS: VORTIOXETINE 10 MG ORAL SCH (21:00)
[2017-12-03] VITALS: BP 134/75
[2017-12-03 04:00] VITALS: BP 107/66
[2017-12-03 08:00] VITALS: BP 111/41
[2017-12-03] MEDS: Docusate 250mg cap ORAL SCH (09:00)
[2017-12-03] MEDS: Docusate Sod/Senna tab ORAL SCH (09:00)
[2017-12-03] MEDS ORDERED: TRAMADOL HCL50 MG ORAL (11:10)
[2017-12-03] MEDS ORDERED: ACETAMINOPHEN325 M1 ORAL (11:12)
[2017-12-03] MEDS ORDERED: [UNRECOGNIZED DRUG - CODE] (11:23)
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
== END 2017-12-03 11:52 | disposition home health service (06) | DRG 455 ==
LOC: SDSOVERFLO 11-22 05:51 → EDSEX 11-22 07:30 → 3E 11-22 18:39 → 4E 12-01 14:54
DX: M50.021 Cervical disc disorder at C4-C5 level with myelopathy (principal); M54.12 Radiculopathy, cervical region; K59.00 Constipation, unspecified; R11.2 Nausea with vomiting, unspecified; F43.10 Post-traumatic stress disorder, unspecified; G89.18 Other acute postprocedural pain; M81.0 Age-related osteoporosis without current pathological fracture
CPT/HCPCS: 36415; 72040; 76001; 80048; 80053; 83735; 85025; 87081; 94003; 94150; 94760; C9399; J2405